=== PATIENT | male | born 1955 | race Caucasian/White ===

== ENCOUNTER 2017-11-08 21:48 | Inpatient (IN) | payer MEDICARE, MEDICAID ==
[~2017-11-08] VITALS: Ht 182.9 cm; Wt 76.7 kg
--- NOTE | ~2017-11-08 | EKG ---
[place], [place] ELECTROCARDIOGRAM REPORT NAME: LEEANNA MCCARTHY UNIT #: [id number] ROOM: [place] [address] DOCTOR: JOSELITO DRAFT REPORT BIRTHDATE: [birth year] [facility] Test Date: 2017-11-08 Test Time: 22:25:18 Pat Name: LEEANNA MCCARTHY Department: Room: [place] [address] Gender: M Per Assessment Nurse: Ventura Adkins : 1955 Requested By: JORGE DE JESUS DNP Order Number: [id number] Reading MD: Felice lAy MD Measurements Intervals [place] Rate: 152 P: 0 NV: 65 QRS: 61 QRSD: 81 T: 81 QT: 276 QTc: 439 Interpretive Statements Superventricular tachycardia, probable atrial flutter with 2:1 block Borderline low voltage, extremity leads Electronically Signed On 11-09-2017 15:43:57 PDT by Felice Aly MD CM:EKGRPT:ELECTROCARDIOGRAM REPORT 1543 JORGE DE JESUS DNP EPIPHANY DRAFT REPORT JORGE DE JESUS DNP
--- NOTE | ~2017-11-08 | CON ---
[place], [place] REPORT OF CONSULTATION NAME: LEEANNA MCCARTHY UNIT #: [id number] ROOM: [place] [address] DOCTOR: ANAMARIA LEE MD BIRTHDATE: [birth year] DOS: 11/09/2017 HISTORY OF PRESENT ILLNESS: The patient is a 62-year-old man who presented to the hospital with altered mental status. Cardiology was consulted because of a mild elevation in troponin. The patient signed out against medical advice and left the hospital before I saw him and therefore no consultation was done. ANAMARIA LEE MD CM:CONSTR:REPORT OF CONSULTATION 1718 11/12/17 0950 interface
--- NOTE | ~2017-11-08 | WRIGHTHP ---
[place], [place] PATIENT HISTORY AND PHYSICAL EXAM NAME: LEEANNA MCCARTHY [facility] #: [id number] UNIT #: [id number] ROOM: [place] [address] DOCTOR: CORAL LOPEZ MD BIRTHDATE: [birth year] DOS: 11/08/2017 HISTORY OF PRESENT ILLNESS: The patient is 62-year-old. The patient was at home when his girlfriend noticed that he was flailing his arms and legs and they felt that he was hallucinating and so the patient's girlfriend then called the police and the pink slipped him to the Emergency Room where he was evaluated and was found to have extremely elevated lactic acid and ammonia level was also elevated, so he was admitted. This morning, the patient is awake and alert in the ICU, does state that he feels good and he does not have any complaints. He is a heavy drinker, but stated that he gave up drinking about 4 days ago and he feels that he is most likely in a withdrawal state. He also states that he has not been eating very well for the last couple of days. He denies having any chest pains, palpitations, does not have any fever or chills, does not have any abdominal pain, nausea any emesis. He does not have any urinary symptoms. He was given lactulose in the Emergency Room and he did have a large bowel movement and we are awaiting ammonia level this morning. PAST MEDICAL HISTORY: Significant for: 1. Last hospitalization in 2009 with COPD exacerbation. 2. Moderate cigarette smoker. 3. Heavy alcohol use. 4. Chronic low back pain. 5. Benign hypertension. 6. Type 2 diabetes mellitus. 7. Generalized anxiety disorder. CURRENT MEDICATIONS: Zolpidem 10 at bedtime, Vicodin 7.5 q.i.d., amlodipine 10 daily, gabapentin 600 t.i.d., Chantix 1 mg b.i.d., omeprazole 20 daily, metoprolol 100 daily, lisinopril/hydrochlorothiazide 20/12.5 b.i.d., metformin 500 daily. SOCIAL HISTORY: Drinks very heavily and also smokes about a pack of cigarettes. Denies using any recreational drugs. PHYSICAL EXAMINATION: GENERAL: He is awake and alert and oriented, in no distress, does not have any tremulousness of his hands. VITAL SIGNS: Graphic trend shows blood pressure of 107/55 at 4:00, pulse of 115, respirations 12, temperature 99.3. LUNGS: Diminished breath sounds, clear. HEART: Regular. ABDOMEN: Soft, nontender. EXTREMITIES: Without any edema. NEUROLOGIC: No neurological deficits noticed. He answers questions appropriately. LABORATORY DATA: CT of the head done in the Emergency Room showed small vessel changes. Ammonia was 59, magnesium 1.9, lactic acid is 14.1, salicylate 1.8. Chest x-ray unremarkable. EKG, sinus tachycardic. Tylenol level low. Comprehensive glucose 201, BUN 9, creatinine 2.20, GFR 31, stage 3 renal [place], [place] PATIENT HISTORY AND PHYSICAL EXAM NAME: LEEANNA MCCARTHY [facility] #: [id number] UNIT #: [id number] ROOM: [place] [address] DOCTOR: CORAL LOPEZ MD BIRTHDATE: [birth year] failure. Sodium 139, potassium 4.0, chloride 100, bicarbonate 14. SGOT is 116, SGPT 62, alkaline phosphatase 144. Alcohol level less than 3. Troponin was 0.113. ASSESSMENT AND PLAN: This is a patient who presents with: 1. Change in mental status, most likely a combination of hepatic encephalopathy and delirium tremens. The patient is no longer in delirium tremens and does not need to be treated for that. Hepatic encephalopathy is being treated with lactulose. Ammonia level is pending. 2. Alcoholic liver disease, most likely has underlying cirrhosis. A CT of the abdomen and pelvis is ordered. He does have elevated SGOT, suggestive of alcoholic liver disease. 3. Lactic acidosis, possibly from metformin, but the patient states that he has not been taking it. 4. Hyperglycemia noticed on his blood work. 5. Benign hypertension. We will restart his home medications. 6. Metabolic acidosis, possibly from lactic acidosis. IV fluids have been given and the lactic acid levels have come down. We will recheck basic metabolic panel in the morning. The patient was pink slipped to the ER by police. I do not believe that the patient is in danger to himself and he is allowed to sign out against medical advice if need to because he is back to his original state of baseline state of mind which is normal. 7. Elevated troponin, possibly from renal insufficiency. Troponin levels will be rechecked again. CORAL LOPEZ MD CM:LOWELL:PATIENT HISTORY AND PHYSICAL EXAMINATION 9 5 CORAL LOPEZ MD 11/09/17923 interface
[~2017-11-08 21:48] MED LIST: ASPIRIN DELAYE325 MG PO; GLUCOPHAGE1000 MG PO; LISINOPRIL10 MG PO; LOPRESSOR25 MG PO; LYRICA300 MG PO; PERCOCET 325 MG1 TA2 PO; VICO75300 PO; VICODIN 5/500 505 MG PO
[2017-11-08 21:54] VITALS: BP 168/86
[2017-11-08 22:33] LABS: HEMATOCRIT 42.8 % (42.0-52.0); HEMOGLOBIN 14.4 g/dl (14.0-18.0); MEAN CELL VOLUME 114.1 fl (80.0-94.0); MEAN CORPUSCULAR HGB 38.4 pg (27.0-31.0); MEAN CORPUSCULAR HGB CONC 33.6 g/dl (33.0-37.0); MEAN PLATELET VOLUME 11.1 fl (9.6-12.3); PLATELET COUNT AUTOMATED 192 10*3/uL (130-400); RED BLOOD COUNT 3.75 10*6/uL (4.50-5.90); RED CELL DISTRI WIDTH 14.2 % (0-14.5); WHITE BLOOD COUNT 14.9 10*3/uL (4.8-10.8)
[2017-11-08 23:13] LABS: PLATELET SUFFICIENCY NORMAL (NORMAL); TOTAL CELLS COUNTED 100 #CELLS
[2017-11-08 23:17] VITALS: BP 148/96
[2017-11-08 23:23] LABS: ALBUMIN 3.4 gm/dl (3.1-4.5); ALKALINE PHOSPHATASE 144 U/L (45-117); BUN 9 mg/dl (7-24); CHLORIDE 100 mmol/L (98-107); SGOT/AST 116 IU/L (3-35); SGPT/ALT 62 U/L (12-78); SODIUM 139 mmol/L (136-145); TOTAL PROTEIN 7.3 gm/dL (6.4-8.2)
[2017-11-08 23:28] LABS: ACETAMINOPHEN (TYLENOL) < 2.0 ug/ml (10-30); ETHYL ALCOHOL < 3.0 mg/dl (<3)
[2017-11-08 23:52] VITALS: BP 166/104
[2017-11-09] VITALS (7 sets, daily range): BP systolic 107–167; BP diastolic 55–104
[2017-11-09] MEDS ORDERED: NEURONTIN300 MG PO (01:44)
[2017-11-09] MEDS ORDERED: NORVASC10 MG PO (02:04)
[2017-11-09] MEDS ORDERED: GLUCOPHAGE500 M1 PO (02:04)
[2017-11-09] MEDS ORDERED: ZESTORETIC 20-1 EACH PO (02:05)
[2017-11-09] MEDS ORDERED: TOPROL XL100 MG PO (02:05)
[2017-11-09] MEDS ORDERED: AMBIEN10 M1 PO (02:06)
[2017-11-09] MEDS ORDERED: PRILOSEC20 M1 PO (02:06)
[2017-11-09] MEDS ORDERED: CHANTIX1 M1 PO (02:07)
[2017-11-09 05:30] LABS: CREATININE 1.66 mg/dL (0.70-1.30); POTASSIUM 4.3 mmol/L (3.5-5.1)
[2017-11-09 06:45] LABS: BILIRUBIN NEGATIVE (NEGATIVE); BLOOD 2+ (NEGATIVE); CLARITY SL CLOUDY (CLEAR); COLOR YELLOW (YELLOW); GLUCOSE NEGATIVE (NEGATIVE); KETONE NEGATIVE (NEGATIVE); LEUKO ESTERASE NEGATIVE (NEGATIVE); NITRITE NEGATIVE (NEGATIVE); SPECIFIC GRAVITY 1.025 (1.005-1.030); UROBILINOGEN 0.2 E.U./dl (0.2-1.0)
[2017-11-09 06:52] LABS: URINE AMPHETAMINES < 1000 (1000ng/ml); URINE BARBITURATES < 200 (200ng/ml); URINE BENZODIAZEPINES < 200 (200ng/ml); URINE CANNABINOIDS (THC) < 50 (50ng/ml); URINE COCAINE < 300 (300ng/ml); URINE METHADONE < 300 (300ng/ml); URINE OPIATES > 300 (300ng/ml)
[2017-11-09 07:04] LABS: BACTERIA TRACE; EPITHELIAL CELLS 16-20; HYALINE CAST 16-20; RBC 16-20 rbc/hpf (0-2)
[2017-11-09 07:12] LABS: URINE PHENCYCLIDINE < 25 (25ng/ml)
[2017-11-09] MEDS ORDERED: HYDROCODONE-AC1 EAC2 PO (16:10)
== END 2017-11-09 17:15 | disposition left against medical advice (07) | DRG 441 ==
LOC: ED 21:48 → EDHOLD 23:52 → ICCU 23:52
PROVIDERS: Internal Medicine; Nurse Practitioner Family
DX: K72.90 Hepatic failure, unspecified without coma (principal); N17.0 Acute kidney failure with tubular necrosis; E87.2 Acidosis; F10.231 Alcohol dependence with withdrawal delirium; J44.9 Chronic obstructive pulmonary disease, unspecified; E86.0 Dehydration; G89.29 Other chronic pain; M54.5 Low back pain; F41.1 Generalized anxiety disorder; I10 Essential (primary) hypertension; F17.210 Nicotine dependence, cigarettes, uncomplicated; E11.65 Type 2 diabetes mellitus with hyperglycemia; Z53.21 Procedure and treatment not carried out due to patient leaving prior to being seen by health care provider; K70.30 Alcoholic cirrhosis of liver without ascites; Z91.040 Latex allergy status; Z79.82 Long term (current) use of aspirin; Z79.84 Long term (current) use of oral hypoglycemic drugs; Z79.4 Long term (current) use of insulin; Z83.3 Family history of diabetes mellitus; Z82.49 Family history of ischemic heart disease and other diseases of the circulatory system; Z79.899 Other long term (current) drug therapy

== ENCOUNTER 2017-12-11 17:49 | Emergency (ER) | payer MEDICARE, MEDICAID ==
[~2017-12-11] VITALS: Wt 75.0 kg
--- NOTE | ~2017-12-11 | EKG ---
[place], [place] ELECTROCARDIOGRAM REPORT NAME: LEEANNA MCCARTHY UNIT #: [id number] ROOM: DOCTOR: EPIPHANY DRAFT REPORT BIRTHDATE: [birth year] [facility] Test Date: 2017-12-11 Test Time: 18:16:33 Pat Name: LEEANNA MCCARTHY Department: Room: Gender: Telesales Specialist: : 1955 Requested By: STEVE HERRING Order Number: [id number] Reading MD: Elliot Duran MD Measurements Intervals [place] Rate: 154 P: 269 MT: 149 QRS: -49 QRSD: 154 T: -78 QT: 338 QTc: 541 Interpretive Statements Sinus or ectopic atrial tachycardia Nonspecific IVCD with LAD Borderline abnrm T, anterolateral leads Baseline wander in lead(s) V4 Electronically Signed On 12-12-2017 8:30:18 PDT by Elliot Duran MD CM:EKGRPT:ELECTROCARDIOGRAM REPORT [address] DRAFT REPORT STEVE HERRING DO
[~2017-12-11 17:49] MED LIST changes: +AMBIEN10 M1 PO; +CHANTIX1 M1 PO; +GLUCOPHAGE500 M1 PO; +HYDROCODONE-AC1 EAC2 PO; +NEURONTIN300 MG PO; +NORVASC10 MG PO; +PRILOSEC20 M1 PO; +TOPROL XL100 MG PO; +ZESTORETIC 20-1 EACH PO
[2017-12-11 18:20] LABS: ABG HCO3 9.1 mmol/l (22-26); ABG O2 SATURATION 99.2 % (95-97); ARTERIAL BLOOD GAS PCO2 28.6 mmHg (35-45)
[2017-12-11 18:21] LABS: ABG BASE EXCESS -18.9 mmol/L (-2.0-2.0)
[2017-12-11 18:23] LABS: ARTERIAL BLOOD GAS PH 7.129 (7.35-7.45)
[2017-12-11 19:11] LABS: HEMATOCRIT 23.4 % (42.0-52.0); HEMOGLOBIN 7.6 g/dl (14.0-18.0); MEAN CELL VOLUME 117.6 fl (80.0-94.0); MEAN CORPUSCULAR HGB 38.2 pg (27.0-31.0); MEAN CORPUSCULAR HGB CONC 32.5 g/dl (33.0-37.0); MEAN PLATELET VOLUME 11.6 fl (9.6-12.3); NUCLEATED RED BLOOD CELL 0.1 10*3/uL (0.0-0.0); NUCLEATED RED BLOOD CELL 0.5 % (0.0-0.0); PLATELET COUNT AUTOMATED 110 10*3/uL (130-400); RED BLOOD COUNT 1.99 10*6/uL (4.50-5.90); RED CELL DISTRI WIDTH 14.9 % (0-14.5); WHITE BLOOD COUNT 10.2 10*3/uL (4.8-10.8)
[2017-12-11 19:22] LABS: ACT PARTIAL THROMBO TIME 34.8 SECONDS (20.8-31.5); INTERNATIONAL NORM RATIO 1.8 (2.0-3.5)
[2017-12-11 19:29] LABS: ALBUMIN 1.8 gm/dl (3.1-4.5); ALKALINE PHOSPHATASE 119 U/L (45-117); BUN 56 mg/dl (7-24); CHLORIDE 92 mmol/L (98-107); CREATININE 3.43 mg/dL (0.70-1.30); POTASSIUM 3.2 mmol/L (3.5-5.1); SGOT/AST 321 IU/L (3-35); SGPT/ALT 68 U/L (12-78); SODIUM 138 mmol/L (136-145); TOTAL PROTEIN 5.5 gm/dL (6.4-8.2)
[2017-12-11 19:31] LABS: ETHYL ALCOHOL < 3.0 mg/dl (<3); TROPONIN I 0.105 ng/ml (<0.045)
[2017-12-11 19:33] LABS: TOTAL CELLS COUNTED 100 #CELLS
[2017-12-11 19:34] LABS: PLATELET SUFFICIENCY LOW (NORMAL)
[2017-12-11 19:47] LABS: ACETAMINOPHEN (TYLENOL) < 5.0 ug/ml (10-30)
== END 2017-12-11 22:00 | disposition short-term general hospital (02) ==
LOC: ED 17:49
PROVIDERS: Student in an Organized Health Care Education/Training Program
DX: A41.9 Sepsis, unspecified organism (principal); R65.21 Severe sepsis with septic shock; K92.2 Gastrointestinal hemorrhage, unspecified; K72.90 Hepatic failure, unspecified without coma; F17.200 Nicotine dependence, unspecified, uncomplicated